=== PATIENT | female | born 1950 | race Caucasian/White ===

== ENCOUNTER 2016-10-30 05:48 | Day surgery (SDC) | payer MEDICARE, OTHER ==
[2016-10-30] MEDS ORDERED: IV START KIT ONE (06:02)
[2016-10-30] MEDS ORDERED: LACTATED RINGERS 1,000 ML ONE (06:02)
[2016-10-30] MEDS ORDERED: MIDAZOLAM HCL 5 MG/5 ML VIAL ONE ×2 (06:31→06:32)
[2016-10-30] MEDS ORDERED: FENTANYL 250 MCG/5 ML AMP ONE (06:32)
[2016-10-30] MEDS ORDERED: MIDAZOLAM HCL 5 MG/5 ML VIAL IV PRN (07:06)
[2016-10-30] MEDS ORDERED: FENTANYL 250 MCG/5 ML AMP IV PRN (07:06)
[2016-10-30] MEDS ORDERED: PROPOFOL 20 ML IV ONE (07:37)
== END 2016-10-30 09:00 | disposition home or self-care (01) ==
LOC: SDC 05:48
PROVIDERS: ATTEND Family Medicine
PROC: 0DJD8ZZ Inspection of Lower Intestinal Tract, Via Natural or Artificial Opening Endoscopic (ICD-10-PCS; principal; 2016-10-30)
DX: Z12.11 Encounter for screening for malignant neoplasm of colon (principal); M85.80 Other specified disorders of bone density and structure, unspecified site; N18.9 Chronic kidney disease, unspecified; E83.52 Hypercalcemia
CPT/HCPCS: J3010; J2250; J7120; G0104